=== PATIENT | female | born 1945 | race Caucasian/White ===

== ENCOUNTER 2018-12-18 05:30 | Inpatient (IN) | payer MEDICAID ==
[~2018-12-18] VITALS: Ht 154.9 cm; Wt 88.5 kg
[2018-12-18 05:37] VITALS: BP_SYST 151
[2018-12-18] MEDS ORDERED: METO25TA3 PO (05:43)
[2018-12-18] MEDS ORDERED: LOSA100T3 PO (05:43)
[2018-12-18] MEDS ORDERED: ERGO500020 PO (05:44)
[2018-12-18] MEDS ORDERED: IPRATROPIUM/ALBUTEROL SULFATE 3 ML AMPUL.NEB (DUONEB) INH ONE (05:45)
[2018-12-18] MEDS ORDERED: ASPIRIN 81 MG TAB.CHEW PO ONE (05:45)
[2018-12-18] MEDS ORDERED: LEVO75TA7 PO (05:45)
[2018-12-18] MEDS ORDERED: NS 500 ML IV ONE (05:45)
[2018-12-18] MEDS ORDERED: LANS-57 PO (05:45)
[2018-12-18] MEDS ORDERED: WARF2TAB2 PO (05:47)
[2018-12-18] MEDS ORDERED: FOLI-43 PO (05:48)
[2018-12-18] MEDS ORDERED: AMLO5TAB4 PO (05:48)
[2018-12-18] MEDS ORDERED: IBUP-1969 PO (05:49)
[2018-12-18] MEDS ORDERED: LANT10005 PO (05:51)
[2018-12-18 06:00] LABS: HEMATOCRIT 34.4 % (36-48); HEMOGLOBIN 11.2 g/dL (12.0-16.0); MEAN CORPUSCULAR HEMOGLOBIN 30 pg (27-31); MEAN CORPUSCULAR HGB CONC 33 % (32-36); MEAN CORPUSCULAR VOLUME 91 fL (79.0-98.0); PLATELET COUNT (AUTO) 189 K/uL (130-430); RED BLOOD CELL COUNT(AUTO) 3.78 MIL/uL (4.2-6.2); RED CELL DISTRIBUTION WIDTH 15.9 % (9.0-15.0); WHITE BLOOD COUNT (AUTO) 5.6 K/uL (4.8-10.8)
[2018-12-18 06:01] LABS: BASOPHILS # (AUTO) 0.1 K/uL (0.0-0.2); BASOPHILS % (AUTO) 0.9 % (0.0-2.0); EOSINOPHILS # (AUTO) 0.7 K/uL (0.0-0.4); EOSINOPHILS % (AUTO) 11.6 % (0.0-4.0); LYMPHOCYTES # (AUTO) 0.7 K/uL (1.0-5.5); LYMPHOCYTES % (AUTO) 12.2 % (20.5-51.5); MONOCYTES # (AUTO) 0.7 K/uL (0.0-1.0); MONOCYTES % (AUTO) 12.7 % (1.7-9.3); NEUTROPHILS # (AUTO) 3.5 K/uL (1.8-7.7); NEUTROPHILS % (AUTO) 62.6 % (40.0-70.0)
[2018-12-18 06:11] LABS: ANION GAP 11 (5-15); CALCIUM 9.3 mg/dL (8.4-11.0); CHLORIDE 96 mmol/L (98-107); CREATININE 6.26 mg/dL (0.55-1.30); GLUCOSE 175 mg/dL (70-99); POTASSIUM 4.7 mmol/L (3.5-5.1); SODIUM SERUM 137 mmol/L (136-145); UREA NITROGEN, BLOOD 33 mg/dL (8-21)
[2018-12-18 06:13] LABS: INR 1.3 (0.8-1.2)
[2018-12-18 06:25] LABS: ALANINE AMINOTRANSFERASE 20 U/L (12-78); ALBUMIN 3.4 g/dL (3.4-4.8); ASPARTATE AMINOTRANSFERASE 23 U/L (10-37); THYROID STIMULATING HORMONE 2.05 uIu/mL (0.36-3.74); TOTAL BILIRUBIN 0.3 mg/dL (0.0-1.0)
[2018-12-18] MEDS ORDERED: PIPERACILLIN/TAZO 3.375 GM in NS 50 ML IV ONE (06:30)
[2018-12-18] MEDS ORDERED: IPRATROPIUM/ALBUTEROL SULFATE 3 ML AMPUL.NEB (DUONEB) INH PRN (06:45)
[2018-12-18] MEDS ORDERED: PIPERACILLIN/TAZOBACTAM 3.375 GM/VIAL (ZOSYN) IV ONE ×2 (06:48)
[2018-12-18 07:00] VITALS: BP_SYST 151
[2018-12-18 07:03] VITALS: BP_SYST 162
[2018-12-18] MEDS ORDERED: ZOLPIDEM TARTRATE 5 MG TABLET PO PRN (07:15)
[2018-12-18] MEDS ORDERED: MILK OF MAGNESIA 30 ML UDC PO PRN (07:15)
[2018-12-18] MEDS ORDERED: LORazepam 2 MG/ML VIAL IVP PRN (07:15)
[2018-12-18] MEDS ORDERED: ONDANSETRON HCL 4 MG/2 ML VIAL IVP PRN (07:15)
[2018-12-18] MEDS ORDERED: DOCUSATE SODIUM 100 MG CAPSULE PO PRN (07:15)
[2018-12-18] MEDS ORDERED: HYDROcodone/ACETAMIN 5-325 MG TAB (NORCO/ VICODIN) PO PRN (07:15)
[2018-12-18] MEDS ORDERED: LEVOTHYROXINE SODIUM 0.075 MG TABLET PO ONE (08:15)
[2018-12-18 08:28] LABS: CHOLESTEROL 203 mg/dL (<200); HDL CHOLESTEROL 57 mg/dL (>55); LDL CHOLESTEROL 122 mg/dL (<100); LIPASE 172 U/L (73-393); PHOSPHORUS 4.9 mg/dL (2.7-4.5); TRIGLYCERIDES 129 mg/dL (30-150)
[2018-12-18] MEDS: METOPROLOL TARTRATE 25 MG TABLET PO SCH ×2 (09:25→21:26)
[2018-12-18] MEDS: LOSARTAN POTASSIUM 50 MG TABLET (COZAAR) PO SCH (09:25)
[2018-12-18] MEDS: amLODIPine BESYLATE 5 MG TABLET PO SCH ×2 (09:25→21:26)
[2018-12-18] MEDS: FOLIC ACID 1 MG TABLET PO SCH (09:25)
[2018-12-18] MEDS: ACETAMINOPHEN 325 MG TABLET PO PRN ×2 (09:30→21:27)
[2018-12-18] MEDS ORDERED: DEXTROSE 50% JECT 50 ML DISP.SYRIN IVP PRN (10:00)
[2018-12-18] MEDS ORDERED: cloNIDine HCL 0.1 MG TABLET PO PRN (10:15)
[2018-12-18] MEDS ORDERED: methylPREDNISolone SOD SUCC/PF 62.5 MG/ML VIAL IVP ONE (11:15)
[2018-12-18] MEDS ORDERED: PIPERACILLIN/TAZO 2.25G/DEX-IS 50 ML IV ONE (11:30)
[2018-12-18] MEDS ORDERED: DILTIAZEM HCL 25 MG/5 ML VIAL IVP ONE (11:30)
[2018-12-18] MEDS: PROMETHAZINE 6.25 MG/ CODEINE 10 MG/ 5 ML PO PRN (11:51)
[2018-12-18] MEDS: INSULIN LISPRO SLIDING SCALE 100 UNITS/ML VIAL (humaLOG) SUBCUT PRN ×3 (11:55→21:23)
[2018-12-18] MEDS: IPRATROPIUM/ALBUTEROL SULFATE 3 ML AMPUL.NEB (DUONEB) INH SCH ×2 (12:00→19:25)
[2018-12-18 12:19] VITALS: BP_SYST 136
[2018-12-18] MEDS: NORMAL SALINE 5 ML DISP.SYRIN IVF SCH ×2 (13:59→21:28)
[2018-12-18 15:34] VITALS: BP_SYST 138
[2018-12-18] MEDS: WARFARIN SODIUM 3 MG TABLET PO SCH (17:19)
[2018-12-18] MEDS: BUDESONIDE 0.5 MG/2 ML AMPUL.NEB INH SCH (20:00)
[2018-12-18] MEDS: PIPERACILLIN/TAZO 2.25G/DEX-IS 50 ML IV SCH (21:25)
[2018-12-18] MEDS: methylPREDNISolone SOD SUCC/PF 62.5 MG/ML VIAL IVP SCH (21:27)
[2018-12-18] MEDS: INSULIN NPH/REGULAR 70-30, 100 UNITS/ML, 10 ML VIAL SUBCUT SCH (21:41)
[2018-12-19] MEDS: IPRATROPIUM/ALBUTEROL SULFATE 3 ML AMPUL.NEB (DUONEB) INH SCH ×5 (00:30→23:41)
[2018-12-19 01:16] VITALS: BP_SYST 149
[2018-12-19] MEDS: LEVOTHYROXINE SODIUM 0.075 MG TABLET PO SCH (05:54)
[2018-12-19] MEDS: methylPREDNISolone SOD SUCC/PF 62.5 MG/ML VIAL IVP SCH ×2 (05:54→14:17)
[2018-12-19] MEDS: NORMAL SALINE 5 ML DISP.SYRIN IVF SCH ×3 (05:54→21:21)
[2018-12-19] MEDS: INSULIN NPH/REGULAR 70-30, 100 UNITS/ML, 10 ML VIAL SUBCUT SCH ×2 (06:08→17:12)
[2018-12-19] MEDS: INSULIN LISPRO SLIDING SCALE 100 UNITS/ML VIAL (humaLOG) SUBCUT PRN ×4 (06:09→21:27)
[2018-12-19 07:15] LABS: INR 1.5 (0.8-1.2); PROTHROMBIN TIME 15.6 SECS (9.5-12.5)
[2018-12-19 07:21] LABS: ANION GAP 16 (5-15); CALCIUM 9.3 mg/dL (8.4-11.0); CHLORIDE 93 mmol/L (98-107); SODIUM SERUM 131 mmol/L (136-145); UREA NITROGEN, BLOOD 59 mg/dL (8-21)
[2018-12-19 07:41] LABS: GLUCOSE 404 mg/dL (70-99)
[2018-12-19 07:42] LABS: ALANINE AMINOTRANSFERASE 28 U/L (12-78); ALBUMIN 3.2 g/dL (3.4-4.8); ASPARTATE AMINOTRANSFERASE 33 U/L (10-37); CREATININE 8.69 mg/dL (0.55-1.30); THYROID STIMULATING HORMONE 0.58 uIu/mL (0.36-3.74); TOTAL BILIRUBIN 0.3 mg/dL (0.0-1.0)
[2018-12-19] MEDS: BUDESONIDE 0.5 MG/2 ML AMPUL.NEB INH SCH ×2 (08:00→20:04)
[2018-12-19 08:21] LABS: HEMATOCRIT 33.2 % (36-48); HEMOGLOBIN 10.8 g/dL (12.0-16.0); MEAN CORPUSCULAR HEMOGLOBIN 30 pg (27-31); MEAN CORPUSCULAR VOLUME 93 fL (79.0-98.0); RED BLOOD CELL COUNT(AUTO) 3.58 MIL/uL (4.2-6.2)
[2018-12-19 08:22] VITALS: BP_SYST 146
[2018-12-19 08:22] LABS: BASOPHILS % (AUTO) 0.3 % (0.0-2.0); LYMPHOCYTES # (AUTO) 0.4 K/uL (1.0-5.5); LYMPHOCYTES % (AUTO) 5.9 % (20.5-51.5); MEAN CORPUSCULAR HGB CONC 33 % (32-36); MONOCYTES # (AUTO) 0.1 K/uL (0.0-1.0); MONOCYTES % (AUTO) 1.7 % (1.7-9.3); NEUTROPHILS # (AUTO) 5.5 K/uL (1.8-7.7); NEUTROPHILS % (AUTO) 92.1 % (40.0-70.0); PLATELET COUNT (AUTO) 152 K/uL (130-430); RED CELL DISTRIBUTION WIDTH 16.3 % (9.0-15.0)
[2018-12-19] MEDS: PIPERACILLIN/TAZO 2.25G/DEX-IS 50 ML IV SCH (09:01)
[2018-12-19] MEDS: METOPROLOL TARTRATE 25 MG TABLET PO SCH ×2 (09:02→21:20)
[2018-12-19] MEDS: amLODIPine BESYLATE 5 MG TABLET PO SCH ×2 (09:02→21:21)
[2018-12-19] MEDS: FOLIC ACID 1 MG TABLET PO SCH (09:02)
[2018-12-19] MEDS: ASPIRIN 81 MG TAB.CHEW PO SCH (09:02)
[2018-12-19] MEDS: LOSARTAN POTASSIUM 50 MG TABLET (COZAAR) PO SCH (09:03)
[2018-12-19 12:09] VITALS: BP_SYST 151
[2018-12-19] MEDS ORDERED: SODIUM POLYSTYRENE SULFONATE 15 GM/60 ML UDBTL PO ONE (12:30)
[2018-12-19 16:35] VITALS: BP_SYST 139
[2018-12-19] MEDS ORDERED: INSULIN NPH/REGULAR 70-30, 100 UNITS/ML, 10 ML VIAL SUBCUT SCH (17:00)
[2018-12-19] MEDS: WARFARIN SODIUM 3 MG TABLET PO SCH (17:38)
[2018-12-19 20:00] VITALS: BP_SYST 128
[2018-12-19] MEDS: ACETAMINOPHEN 325 MG TABLET PO PRN (21:19)
[2018-12-19] MEDS: methylPREDNISolone SOD SUCC 40 MG/ML VIAL IVP SCH (21:19)
[2018-12-20 00:10] VITALS: BP_SYST 150
[2018-12-20] MEDS: methylPREDNISolone SOD SUCC 40 MG/ML VIAL IVP SCH ×2 (05:56→15:06)
[2018-12-20] MEDS: NORMAL SALINE 5 ML DISP.SYRIN IVF SCH ×3 (05:56→21:34)
[2018-12-20] MEDS: LEVOTHYROXINE SODIUM 0.075 MG TABLET PO SCH (05:56)
[2018-12-20] MEDS: INSULIN NPH/REGULAR 70-30, 100 UNITS/ML, 10 ML VIAL SUBCUT SCH ×2 (06:08→17:16)
[2018-12-20] MEDS: INSULIN LISPRO SLIDING SCALE 100 UNITS/ML VIAL (humaLOG) SUBCUT PRN ×4 (06:09→21:34)
[2018-12-20] MEDS: IPRATROPIUM/ALBUTEROL SULFATE 3 ML AMPUL.NEB (DUONEB) INH SCH ×3 (07:01→19:14)
[2018-12-20 07:44] VITALS: BP_SYST 157
[2018-12-20 08:17] LABS: INR 2.1 (0.8-1.2); PROTHROMBIN TIME 20.4 SECS (9.5-12.5)
[2018-12-20 08:30] LABS: ALANINE AMINOTRANSFERASE 35 U/L (12-78); ALBUMIN 3.1 g/dL (3.4-4.8); ANION GAP 13 (5-15); ASPARTATE AMINOTRANSFERASE 30 U/L (10-37); CALCIUM 8.6 mg/dL (8.4-11.0); CHLORIDE 92 mmol/L (98-107); CREATININE 6.68 mg/dL (0.55-1.30); GLUCOSE 371 mg/dL (70-99); PHOSPHORUS 6.8 mg/dL (2.7-4.5); POTASSIUM 3.7 mmol/L (3.5-5.1); SODIUM SERUM 132 mmol/L (136-145); TOTAL BILIRUBIN 0.4 mg/dL (0.0-1.0); UREA NITROGEN, BLOOD 56 mg/dL (8-21)
[2018-12-20] MEDS: LOSARTAN POTASSIUM 50 MG TABLET (COZAAR) PO SCH (09:02)
[2018-12-20] MEDS: amLODIPine BESYLATE 5 MG TABLET PO SCH ×2 (09:03→21:26)
[2018-12-20] MEDS: METOPROLOL TARTRATE 25 MG TABLET PO SCH ×2 (09:03→21:25)
[2018-12-20] MEDS: FOLIC ACID 1 MG TABLET PO SCH (09:03)
[2018-12-20] MEDS: ASPIRIN 81 MG TAB.CHEW PO SCH ×2 (09:03→09:06)
[2018-12-20] MEDS: BUDESONIDE 0.5 MG/2 ML AMPUL.NEB INH SCH ×2 (09:19→19:33)
[2018-12-20] MEDS: AZITHROMYCIN 250 MG in NS 250 ML IV SCH (11:10)
[2018-12-20 11:22] VITALS: BP_SYST 127
[2018-12-20] MEDS: PROMETHAZINE 6.25 MG/ CODEINE 10 MG/ 5 ML PO PRN (11:34)
[2018-12-20 11:40] LABS: HEMATOCRIT 32.2 % (36-48); HEMOGLOBIN 10.4 g/dL (12.0-16.0); MEAN CORPUSCULAR HEMOGLOBIN 30 pg (27-31); MEAN CORPUSCULAR HGB CONC 32 % (32-36); MEAN CORPUSCULAR VOLUME 92 fL (79.0-98.0); PLATELET COUNT (AUTO) 166 K/uL (130-430); RED CELL DISTRIBUTION WIDTH 15.8 % (9.0-15.0)
[2018-12-20 11:41] LABS: BASOPHILS % (AUTO) 0.1 % (0.0-2.0); LYMPHOCYTES # (AUTO) 0.4 K/uL (1.0-5.5); LYMPHOCYTES % (AUTO) 3.2 % (20.5-51.5); MONOCYTES # (AUTO) 0.2 K/uL (0.0-1.0); MONOCYTES % (AUTO) 1.9 % (1.7-9.3); NEUTROPHILS # (AUTO) 10.4 K/uL (1.8-7.7)
[2018-12-20 13:52] LABS: NEUTROPHILS % (AUTO) 94.8 % (40.0-70.0)
[2018-12-20 15:07] VITALS: BP_SYST 121
[2018-12-20 15:56] LABS: HEMOGLOBIN A1C 7.6 % (4.8-5.6)
[2018-12-20] MEDS ORDERED: WARFARIN SODIUM 2 MG TABLET PO SCH (18:00)
[2018-12-20 20:00] VITALS: BP_SYST 140
[2018-12-21 00:34] VITALS: BP_SYST 109
[2018-12-21] MEDS: IPRATROPIUM/ALBUTEROL SULFATE 3 ML AMPUL.NEB (DUONEB) INH SCH ×3 (01:00→14:09)
[2018-12-21] MEDS: PROMETHAZINE 6.25 MG/ CODEINE 10 MG/ 5 ML PO PRN ×2 (04:25→08:52)
[2018-12-21] MEDS: NORMAL SALINE 5 ML DISP.SYRIN IVF SCH ×2 (06:16→13:53)
[2018-12-21] MEDS: LEVOTHYROXINE SODIUM 0.075 MG TABLET PO SCH (06:17)
[2018-12-21] MEDS: INSULIN NPH/REGULAR 70-30, 100 UNITS/ML, 10 ML VIAL SUBCUT SCH (06:23)
[2018-12-21] MEDS: INSULIN LISPRO SLIDING SCALE 100 UNITS/ML VIAL (humaLOG) SUBCUT PRN (06:24)
[2018-12-21 07:55] LABS: INR 2.3 (0.8-1.2)
[2018-12-21 08:00] VITALS: BP_SYST 141
[2018-12-21 08:03] LABS: PROTHROMBIN TIME 23.1 SECS (9.5-12.5)
[2018-12-21] MEDS: LOSARTAN POTASSIUM 50 MG TABLET (COZAAR) PO SCH (08:45)
[2018-12-21] MEDS: amLODIPine BESYLATE 5 MG TABLET PO SCH (08:46)
[2018-12-21] MEDS: FOLIC ACID 1 MG TABLET PO SCH (08:46)
[2018-12-21] MEDS: METOPROLOL TARTRATE 25 MG TABLET PO SCH (08:46)
[2018-12-21] MEDS: AZITHROMYCIN 250 MG in NS 250 ML IV SCH (08:47)
[2018-12-21] MEDS: BUDESONIDE 0.5 MG/2 ML AMPUL.NEB INH SCH (09:32)
[2018-12-21] MEDS ORDERED: AZIT250T PO (10:56)
[2018-12-21] MEDS ORDERED: PRED10TA PO (10:57)
[2018-12-21 11:06] VITALS: BP_SYST 124
[2018-12-21 12:13] VITALS: BP_SYST 124
[2018-12-21 16:02] VITALS: BP_SYST 127
== END 2018-12-21 17:34 | disposition home or self-care (01) | DRG 194 ==
LOC: SED 05:30 → STU 06:30
PROVIDERS: ADMIT Family Medicine; ATTEND Family Medicine
PROC: 5A1D70Z Performance of Urinary Filtration, Intermittent, Less than 6 Hours Per Day (ICD-10-PCS; principal; 2018-12-19)
PROC: 5A1D70Z Performance of Urinary Filtration, Intermittent, Less than 6 Hours Per Day (ICD-10-PCS; 2018-12-20)
DX: I13.2 Hypertensive heart and chronic kidney disease with heart failure and with stage 5 chronic kidney disease, or end stage renal disease (principal); N17.0 Acute kidney failure with tubular necrosis; R65.11 Systemic inflammatory response syndrome (SIRS) of non-infectious origin with acute organ dysfunction; J44.1 Chronic obstructive pulmonary disease with (acute) exacerbation; E11.22 Type 2 diabetes mellitus with diabetic chronic kidney disease; I48.91 Unspecified atrial fibrillation; N18.6 End stage renal disease; E11.40 Type 2 diabetes mellitus with diabetic neuropathy, unspecified; J44.0 Chronic obstructive pulmonary disease with (acute) lower respiratory infection; E87.5 Hyperkalemia; I50.43 Acute on chronic combined systolic (congestive) and diastolic (congestive) heart failure; J20.9 Acute bronchitis, unspecified; Z99.2 Dependence on renal dialysis; E03.9 Hypothyroidism, unspecified; E83.39 Other disorders of phosphorus metabolism; D63.1 Anemia in chronic kidney disease; E83.41 Hypermagnesemia; E66.9 Obesity, unspecified; E78.5 Hyperlipidemia, unspecified; F43.20 Adjustment disorder, unspecified; J45.909 Unspecified asthma, uncomplicated; Z90.49 Acquired absence of other specified parts of digestive tract; Z88.8 Allergy status to other drugs, medicaments and biological substances; Z79.899 Other long term (current) drug therapy; Z68.36 Body mass index [BMI] 36.0-36.9, adult
CPT/HCPCS: 36415; 36600; 71045; 80053; 80061; 82803-TC; 82962; 83036; 83605; 83690-TC; 83735-TC; 83880; 84100-TC; 84134; 84443-TC; 84484; 85025; 85610-TC; 85730-TC; 87040-TC; 87081; 90935; 90937; 93005; 93306; 94640; 94760; 96361; 96365; 99285; G0378; J0456; J1030; J1815; J2543; J2930; J3490; J7030; J7050; J7620; J7626

== ENCOUNTER 2018-12-25 17:26 | Inpatient (IN) | payer MEDICAID ==
[~2018-12-25] VITALS: Ht 157.5 cm; Wt 92.5 kg
[~2018-12-25 17:26] MED LIST: AMLO5TAB4 PO; AZIT250T PO; ERGO500020 PO; FOLI-43 PO; IBUP-1969 PO; LANS-57 PO; LANT10005 PO; LEVO75TA7 PO; LOSA100T3 PO; METO25TA3 PO; PRED10TA PO; WARF2TAB2 PO
[2018-12-25 17:32] VITALS: BP_SYST 143
[2018-12-25] MEDS: NACL 0.9% 1,000 ML IV ONE ×2 (17:34→18:03)
[2018-12-25] MEDS ORDERED: ALBUTEROL SULFATE 0.083% 2.5 MG/3 ML VIAL.NEB IH ONE (17:45)
[2018-12-25] MEDS ORDERED: IPRATROPIUM BROM 0.5 MG/2.5 ML VIAL.NEB (ATROVENT) IH ONE (17:45)
[2018-12-25] MEDS ORDERED: methylPREDNISolone SOD SUCC/PF 62.5 MG/ML VIAL IVP ONE (17:45)
[2018-12-25] MEDS ORDERED: NS 500 ML IV ONE (17:45)
[2018-12-25] MEDS ORDERED: INSU100V3 SQ ×2 (18:27)
[2018-12-25 18:28] LABS: HEMATOCRIT 34.7 % (36-48); HEMOGLOBIN 11.3 g/dL (12.0-16.0); MEAN CORPUSCULAR HEMOGLOBIN 30 pg (27-31); MEAN CORPUSCULAR VOLUME 91 fL (79.0-98.0)
[2018-12-25 18:29] LABS: BASOPHILS # (AUTO) 0.1 K/uL (0.0-0.2); BASOPHILS % (AUTO) 0.4 % (0.0-2.0); EOSINOPHILS # (AUTO) 0.3 K/uL (0.0-0.4); EOSINOPHILS % (AUTO) 2.1 % (0.0-4.0); LYMPHOCYTES # (AUTO) 0.9 K/uL (1.0-5.5); LYMPHOCYTES % (AUTO) 7.1 % (20.5-51.5); MEAN CORPUSCULAR HGB CONC 33 % (32-36); MONOCYTES # (AUTO) 0.7 K/uL (0.0-1.0); MONOCYTES % (AUTO) 5.7 % (1.7-9.3); NEUTROPHILS % (AUTO) 84.7 % (40.0-70.0); PLATELET COUNT (AUTO) 246 K/uL (130-430); RED CELL DISTRIBUTION WIDTH 15.8 % (9.0-15.0)
[2018-12-25 18:34] LABS: ANION GAP 10 (5-15); CALCIUM 8.2 mg/dL (8.4-11.0); CHLORIDE 93 mmol/L (98-107); CREATININE 6.65 mg/dL (0.55-1.30); GLUCOSE 208 mg/dL (70-99); POTASSIUM 3.8 mmol/L (3.5-5.1); SODIUM SERUM 130 mmol/L (136-145); UREA NITROGEN, BLOOD 51 mg/dL (8-21)
[2018-12-25 18:38] LABS: ALANINE AMINOTRANSFERASE 21 U/L (12-78); ALBUMIN 3.1 g/dL (3.4-4.8); ASPARTATE AMINOTRANSFERASE 6 U/L (10-37); INR 2.2 (0.8-1.2); LIPASE 158 U/L (73-393); PROTHROMBIN TIME 21.8 SECS (9.5-12.5); TOTAL BILIRUBIN 0.4 mg/dL (0.0-1.0)
[2018-12-25 21:30] VITALS: BP_SYST 120
[2018-12-25] MEDS ORDERED: traMADol HCL HCL 50 MG TABLET (ULTRAM) PO PRN (22:00)
[2018-12-25] MEDS ORDERED: AZITHROMYCIN 250 MG TABLET PO ONE (22:00)
[2018-12-25] MEDS ORDERED: DEXTROSE 50% JECT 50 ML DISP.SYRIN IVP PRN (22:00)
[2018-12-25] MEDS ORDERED: LOPERAMIDE HCL 2 MG CAPSULE PO PRN (22:00)
[2018-12-25] MEDS ORDERED: cefTRIAXone 1 GM in D5W 50 ML IV SCH (22:00)
[2018-12-25] MEDS ORDERED: methylPREDNISolone SOD SUCC 40 MG/ML VIAL IVP ONE (22:00)
[2018-12-25] MEDS ORDERED: LEVOFLOXACIN 250 MG/D5W 50 ML IV SCH (22:15)
[2018-12-25] MEDS ORDERED: IPRATROPIUM/ALBUTEROL SULFATE 3 ML AMPUL.NEB (DUONEB) INH PRN (22:15)
[2018-12-25] MEDS: metroNIDAZOLE 500 MG TABLET PO SCH (22:16)
[2018-12-25] MEDS: LACTOBACILLUS RHAMNOSUS GG 1 CAP CAPSULE PO SCH (22:16)
[2018-12-25 22:36] VITALS: BP_SYST 120
[2018-12-25] MEDS: IPRATROPIUM/ALBUTEROL SULFATE 3 ML AMPUL.NEB (DUONEB) INH SCH (23:26)
[2018-12-25] MEDS ORDERED: LEVOFLOXACIN 500 MG/D5W 100 ML IV ONE (23:30)
[2018-12-26] MEDS ORDERED: LEVOFLOXACIN 500 MG/D5W 100 ML IV ONE (00:11)
[2018-12-26 00:30] VITALS: BP_SYST 112
[2018-12-26] MEDS: IPRATROPIUM/ALBUTEROL SULFATE 3 ML AMPUL.NEB (DUONEB) INH SCH ×4 (04:09→19:55)
[2018-12-26] MEDS: metroNIDAZOLE 500 MG TABLET PO SCH ×3 (06:26→21:41)
[2018-12-26] MEDS: INSULIN REGULAR, HUMAN 100 UNITS/ML, 10 ML VIAL (novoLIN R) SUBCUT PRN ×4 (06:47→20:24)
[2018-12-26 06:55] LABS: ANION GAP 18 (5-15); CALCIUM 7.7 mg/dL (8.4-11.0); CHLORIDE 93 mmol/L (98-107); POTASSIUM 5.3 mmol/L (3.5-5.1); SODIUM SERUM 133 mmol/L (136-145); UREA NITROGEN, BLOOD 61 mg/dL (8-21)
[2018-12-26 07:10] LABS: PHOSPHORUS 6.9 mg/dL (2.7-4.5); THYROID STIMULATING HORMONE 0.32 uIu/mL (0.36-3.74)
[2018-12-26 07:30] LABS: CREATININE 7.66 mg/dL (0.55-1.30); GLUCOSE 487 mg/dL (70-99)
[2018-12-26 07:59] LABS: INR 2.6 (0.8-1.2); PROTHROMBIN TIME 25.8 SECS (9.5-12.5)
[2018-12-26 08:14] LABS: BASOPHILS % (AUTO) 0.1 % (0.0-2.0); EOSINOPHILS % (AUTO) 0.1 % (0.0-4.0); HEMATOCRIT 31.7 % (36-48); HEMOGLOBIN 10.1 g/dL (12.0-16.0); LYMPHOCYTES # (AUTO) 0.4 K/uL (1.0-5.5); LYMPHOCYTES % (AUTO) 2.9 % (20.5-51.5); MEAN CORPUSCULAR HEMOGLOBIN 30 pg (27-31); MEAN CORPUSCULAR HGB CONC 32 % (32-36); MEAN CORPUSCULAR VOLUME 94 fL (79.0-98.0); MONOCYTES # (AUTO) 0.1 K/uL (0.0-1.0); MONOCYTES % (AUTO) 0.8 % (1.7-9.3); NEUTROPHILS % (AUTO) 96.1 % (40.0-70.0); PLATELET COUNT (AUTO) 184 K/uL (130-430); RED BLOOD CELL COUNT(AUTO) 3.38 MIL/uL (4.2-6.2); RED CELL DISTRIBUTION WIDTH 15.4 % (9.0-15.0); WHITE BLOOD COUNT (AUTO) 13.6 K/uL (4.8-10.8)
[2018-12-26] MEDS: METOPROLOL SUCCINATE 25 MG TAB.SR.24H (TOPROL XL) PO SCH ×2 (09:00→20:15)
[2018-12-26] MEDS ORDERED: LANTHANUM CARBONATE 1000 MG PO SCH (09:00)
[2018-12-26] MEDS: amLODIPine BESYLATE 5 MG TABLET PO SCH ×2 (09:00→20:16)
[2018-12-26] MEDS ORDERED: methylPREDNISolone SOD SUCC 40 MG/ML VIAL IVP SCH (09:00)
[2018-12-26] MEDS: LOSARTAN POTASSIUM 50 MG TABLET (COZAAR) PO SCH (09:00)
[2018-12-26] MEDS ORDERED: AZITHROMYCIN 250 MG TABLET PO SCH (09:00)
[2018-12-26] MEDS: LACTOBACILLUS RHAMNOSUS GG 1 CAP CAPSULE PO SCH ×2 (09:48→20:14)
[2018-12-26] MEDS: PANTOPRAZOLE SODIUM 40 MG TAB PO SCH (09:48)
[2018-12-26] MEDS: FOLIC ACID 1 MG TABLET PO SCH (09:48)
[2018-12-26] MEDS: LEVOTHYROXINE SODIUM 0.075 MG TABLET PO SCH (09:48)
[2018-12-26 09:51] VITALS: BP_SYST 122
[2018-12-26] MEDS: BUDESONIDE 0.5 MG/2 ML AMPUL.NEB INH SCH ×2 (11:15→19:40)
[2018-12-26] MEDS: ACETAMINOPHEN 325 MG TABLET PO PRN (11:15)
[2018-12-26] MEDS ORDERED: INSULIN NPH 100 UNITS/ML 10 ML VIAL SUBCUT ONE (12:15)
[2018-12-26] MEDS: PREDNISONE 10 MG TABLET PO SCH ×2 (12:37→17:09)
[2018-12-26 12:42] VITALS: BP_SYST 142
[2018-12-26 16:14] VITALS: BP_SYST 120
[2018-12-26] MEDS ORDERED: INSULIN Lispro Prot/Lispro MIX 75-25, 100 UNITS/ML, 10 ML VIAL SUBCUT SCH (17:00)
[2018-12-26] MEDS: SEVELAMER HCL 800 MG TABLET PO SCH (17:08)
[2018-12-26] MEDS ORDERED: WARFARIN SODIUM 2 MG TABLET PO SCH (18:00)
[2018-12-26 19:47] VITALS: BP_SYST 119
[2018-12-26] MEDS: PROMETHAZINE-DM 6.25 MG-15 MG/5 ML UDC PO PRN (20:18)
[2018-12-26] MEDS ORDERED: SEVELAMER HCL 800 MG TABLET PO SCH (21:00)
[2018-12-27] MEDS: IPRATROPIUM/ALBUTEROL SULFATE 3 ML AMPUL.NEB (DUONEB) INH SCH ×4 (00:40→19:47)
[2018-12-27 01:13] VITALS: BP_SYST 119
[2018-12-27] MEDS: metroNIDAZOLE 500 MG TABLET PO SCH ×3 (06:25→21:45)
[2018-12-27] MEDS: PANTOPRAZOLE SODIUM 40 MG TAB PO SCH (06:25)
[2018-12-27 06:39] LABS: ANION GAP 11 (5-15); CALCIUM 8.8 mg/dL (8.4-11.0); CHLORIDE 96 mmol/L (98-107); CREATININE 5.83 mg/dL (0.55-1.30); GLUCOSE 295 mg/dL (70-99); POTASSIUM 4.4 mmol/L (3.5-5.1); SODIUM SERUM 136 mmol/L (136-145); UREA NITROGEN, BLOOD 45 mg/dL (8-21)
[2018-12-27] MEDS: INSULIN REGULAR, HUMAN 100 UNITS/ML, 10 ML VIAL (novoLIN R) SUBCUT PRN ×4 (06:45→21:52)
[2018-12-27 06:48] LABS: BASOPHILS % (AUTO) 0.1 % (0.0-2.0); EOSINOPHILS % (AUTO) 0.1 % (0.0-4.0); HEMATOCRIT 31.4 % (36-48); HEMOGLOBIN 10.1 g/dL (12.0-16.0); LYMPHOCYTES # (AUTO) 0.5 K/uL (1.0-5.5); LYMPHOCYTES % (AUTO) 3.8 % (20.5-51.5); MEAN CORPUSCULAR HEMOGLOBIN 29 pg (27-31); MEAN CORPUSCULAR HGB CONC 32 % (32-36); MEAN CORPUSCULAR VOLUME 91 fL (79.0-98.0); MONOCYTES # (AUTO) 0.8 K/uL (0.0-1.0); MONOCYTES % (AUTO) 5.4 % (1.7-9.3); NEUTROPHILS % (AUTO) 90.6 % (40.0-70.0); PLATELET COUNT (AUTO) 185 K/uL (130-430); RED BLOOD CELL COUNT(AUTO) 3.44 MIL/uL (4.2-6.2); RED CELL DISTRIBUTION WIDTH 15.6 % (9.0-15.0); WHITE BLOOD COUNT (AUTO) 14.3 K/uL (4.8-10.8)
[2018-12-27 07:00] LABS: INR 2.3 (0.8-1.2); PROTHROMBIN TIME 22.7 SECS (9.5-12.5)
[2018-12-27] MEDS ORDERED: INSULIN Lispro Prot/Lispro MIX 75-25, 100 UNITS/ML, 10 ML VIAL SUBCUT SCH (07:00)
[2018-12-27] MEDS: BUDESONIDE 0.5 MG/2 ML AMPUL.NEB INH SCH ×2 (07:25→19:47)
[2018-12-27] MEDS: ACETAMINOPHEN 325 MG TABLET PO PRN (08:11)
[2018-12-27] MEDS: FOLIC ACID 1 MG TABLET PO SCH (08:11)
[2018-12-27] MEDS: PREDNISONE 10 MG TABLET PO SCH ×3 (08:11→17:27)
[2018-12-27] MEDS: LACTOBACILLUS RHAMNOSUS GG 1 CAP CAPSULE PO SCH ×2 (08:12→21:45)
[2018-12-27] MEDS: LOSARTAN POTASSIUM 50 MG TABLET (COZAAR) PO SCH (08:12)
[2018-12-27] MEDS: SEVELAMER HCL 800 MG TABLET PO SCH ×2 (08:13→17:27)
[2018-12-27] MEDS: LEVOTHYROXINE SODIUM 0.075 MG TABLET PO SCH (08:14)
[2018-12-27] MEDS: amLODIPine BESYLATE 5 MG TABLET PO SCH ×2 (08:14→21:46)
[2018-12-27] MEDS: METOPROLOL SUCCINATE 25 MG TAB.SR.24H (TOPROL XL) PO SCH ×2 (08:14→21:46)
[2018-12-27 08:21] VITALS: BP_SYST 149
[2018-12-27 12:15] VITALS: BP_SYST 108
[2018-12-27] MEDS: cefTRIAXone 1 GM in D5W 50 ML IV SCH (15:18)
[2018-12-27 16:11] VITALS: BP_SYST 121
[2018-12-27] MEDS: WARFARIN SODIUM 2 MG TABLET PO SCH (17:26)
[2018-12-27] MEDS: INSULIN Lispro Prot/Lispro MIX 75-25, 100 UNITS/ML, 10 ML VIAL SUBCUT SCH (17:30)
[2018-12-27 19:49] VITALS: BP_SYST 137
[2018-12-27] MEDS ORDERED: LEVOFLOXACIN 250 MG/D5W 50 ML IV SCH ×2 (20:00)
[2018-12-27] MEDS: DOXYCYCLINE HYCLATE 100 MG in D5W 100 ML IV SCH (21:47)
[2018-12-27] MEDS: PROMETHAZINE-DM 6.25 MG-15 MG/5 ML UDC PO PRN (21:58)
[2018-12-28 00:14] VITALS: BP_SYST 115
[2018-12-28] MEDS: IPRATROPIUM/ALBUTEROL SULFATE 3 ML AMPUL.NEB (DUONEB) INH SCH ×3 (00:59→13:43)
[2018-12-28 06:38] LABS: INR 1.7 (0.8-1.2); PROTHROMBIN TIME 17.3 SECS (9.5-12.5)
[2018-12-28] MEDS: PANTOPRAZOLE SODIUM 40 MG TAB PO SCH (06:47)
[2018-12-28] MEDS: metroNIDAZOLE 500 MG TABLET PO SCH ×2 (06:47→13:15)
[2018-12-28] MEDS: INSULIN REGULAR, HUMAN 100 UNITS/ML, 10 ML VIAL (novoLIN R) SUBCUT PRN ×2 (06:52→17:38)
[2018-12-28 06:53] LABS: ANION GAP 13 (5-15); CALCIUM 8.4 mg/dL (8.4-11.0); CHLORIDE 95 mmol/L (98-107); GLUCOSE 228 mg/dL (70-99); POTASSIUM 4.4 mmol/L (3.5-5.1); SODIUM SERUM 134 mmol/L (136-145); UREA NITROGEN, BLOOD 77 mg/dL (8-21)
[2018-12-28] MEDS: BUDESONIDE 0.5 MG/2 ML AMPUL.NEB INH SCH (07:00)
[2018-12-28] MEDS ORDERED: INSULIN Lispro Prot/Lispro MIX 75-25, 100 UNITS/ML, 10 ML VIAL SUBCUT SCH (07:00)
[2018-12-28] MEDS: SEVELAMER HCL 800 MG TABLET PO SCH ×2 (08:25→17:35)
[2018-12-28] MEDS: LEVOTHYROXINE SODIUM 0.075 MG TABLET PO SCH (08:25)
[2018-12-28] MEDS: LACTOBACILLUS RHAMNOSUS GG 1 CAP CAPSULE PO SCH (08:25)
[2018-12-28] MEDS: PREDNISONE 10 MG TABLET PO SCH ×3 (08:25→17:35)
[2018-12-28] MEDS: FOLIC ACID 1 MG TABLET PO SCH (08:25)
[2018-12-28 08:27] VITALS: BP_SYST 135
[2018-12-28] MEDS: METOPROLOL SUCCINATE 25 MG TAB.SR.24H (TOPROL XL) PO SCH (11:42)
[2018-12-28] MEDS: LOSARTAN POTASSIUM 50 MG TABLET (COZAAR) PO SCH (11:42)
[2018-12-28] MEDS: amLODIPine BESYLATE 5 MG TABLET PO SCH (11:42)
[2018-12-28] MEDS: DOXYCYCLINE HYCLATE 100 MG in D5W 100 ML IV SCH (11:45)
[2018-12-28 12:14] VITALS: BP_SYST 108
[2018-12-28 12:26] VITALS: BP_SYST 129
[2018-12-28] MEDS: cefTRIAXone 1 GM in D5W 50 ML IV SCH (13:15)
[2018-12-28 16:00] VITALS: BP_SYST 129
[2018-12-28] MEDS: PROMETHAZINE-DM 6.25 MG-15 MG/5 ML UDC PO PRN (16:44)
[2018-12-28] MEDS: INSULIN Lispro Prot/Lispro MIX 75-25, 100 UNITS/ML, 10 ML VIAL SUBCUT SCH (17:37)
[2018-12-28] MEDS: WARFARIN SODIUM 2 MG TABLET PO SCH (17:39)
== END 2018-12-28 19:35 | disposition home health service (06) | DRG 139 ==
LOC: SED 17:26 → STU 20:26 → SMU 12-27 15:52
PROVIDERS: ADMIT Internal Medicine; ATTEND Internal Medicine
PROC: 5A1D70Z Performance of Urinary Filtration, Intermittent, Less than 6 Hours Per Day (ICD-10-PCS; principal; 2018-12-26)
PROC: 5A1D70Z Performance of Urinary Filtration, Intermittent, Less than 6 Hours Per Day (ICD-10-PCS; 2018-12-28)
DX: J18.9 Pneumonia, unspecified organism (principal); I21.A1 Myocardial infarction type 2; G93.41 Metabolic encephalopathy; I13.2 Hypertensive heart and chronic kidney disease with heart failure and with stage 5 chronic kidney disease, or end stage renal disease; J44.0 Chronic obstructive pulmonary disease with (acute) lower respiratory infection; E11.22 Type 2 diabetes mellitus with diabetic chronic kidney disease; I27.20 Pulmonary hypertension, unspecified; I08.1 Rheumatic disorders of both mitral and tricuspid valves; J45.901 Unspecified asthma with (acute) exacerbation; I48.2 Chronic atrial fibrillation; I50.9 Heart failure, unspecified; N18.6 End stage renal disease; J44.1 Chronic obstructive pulmonary disease with (acute) exacerbation; K52.9 Noninfective gastroenteritis and colitis, unspecified; E03.9 Hypothyroidism, unspecified; E66.9 Obesity, unspecified; Z79.4 Long term (current) use of insulin; Z90.49 Acquired absence of other specified parts of digestive tract; Z68.37 Body mass index [BMI] 37.0-37.9, adult; Z79.01 Long term (current) use of anticoagulants; Z88.8 Allergy status to other drugs, medicaments and biological substances; Z79.899 Other long term (current) drug therapy; Z79.52 Long term (current) use of systemic steroids; Z99.2 Dependence on renal dialysis
CPT/HCPCS: 36415; 36600; 71045; 71250-TC; 80048; 80053; 82550-TC; 82803-TC; 82962; 83605; 83690-TC; 83880; 84100-TC; 84439; 84443-TC; 84484; 85025; 85379; 85610-TC; 85730-TC; 86713; 87040-TC; 87081; 90935; 90937; 93005; 94640; 94664; 94760; 96361; 96374; 97116-GP; 99285; G0378; J0696; J1030; J1815; J1956; J2930; J3490; J7030; J7060; J7512; J7613; J7620; J7626

== ENCOUNTER 2019-03-22 18:49 | Emergency (ER) | payer MEDICAID ==
[~2019-03-22] VITALS: Ht 157.5 cm; Wt 65.8 kg
[~2019-03-22 18:49] MED LIST changes: -AZIT250T PO; +INSU100V3 SQ
[2019-03-22 18:59] VITALS: BP_SYST 118
[2019-03-22 19:36] LABS: ANION GAP 15 (5-15); CALCIUM 9.5 mg/dL (8.4-11.0); CHLORIDE 96 mmol/L (98-107); GLUCOSE 220 mg/dL (70-99); POTASSIUM 4.3 mmol/L (3.5-5.1); SODIUM SERUM 138 mmol/L (136-145); UREA NITROGEN, BLOOD 39 mg/dL (8-21)
[2019-03-22 19:38] LABS: BASOPHILS # (AUTO) 0.1 K/uL (0.0-0.2); BASOPHILS % (AUTO) 0.8 % (0.0-2.0); EOSINOPHILS # (AUTO) 0.1 K/uL (0.0-0.4); EOSINOPHILS % (AUTO) 0.5 % (0.0-4.0); HEMATOCRIT 26.5 % (36-48); HEMOGLOBIN 8.4 g/dL (12.0-16.0); LYMPHOCYTES # (AUTO) 0.8 K/uL (1.0-5.5); MEAN CORPUSCULAR HEMOGLOBIN 30 pg (27-31); MEAN CORPUSCULAR HGB CONC 32 % (32-36); MEAN CORPUSCULAR VOLUME 96 fL (79.0-98.0); MONOCYTES # (AUTO) 0.9 K/uL (0.0-1.0); MONOCYTES % (AUTO) 7.1 % (1.7-9.3); NEUTROPHILS # (AUTO) 10.9 K/uL (1.8-7.7); NEUTROPHILS % (AUTO) 85.6 % (40.0-70.0); PLATELET COUNT (AUTO) 396 K/uL (130-430); RED BLOOD CELL COUNT(AUTO) 2.76 MIL/uL (4.2-6.2); RED CELL DISTRIBUTION WIDTH 16.3 % (9.0-15.0); WHITE BLOOD COUNT (AUTO) 12.7 K/uL (4.8-10.8)
[2019-03-22 19:42] LABS: ALANINE AMINOTRANSFERASE 22 U/L (12-78); ALBUMIN 2.2 g/dL (3.4-4.8); ASPARTATE AMINOTRANSFERASE 22 U/L (10-37); TOTAL BILIRUBIN 0.4 mg/dL (0.0-1.0)
[2019-03-22 19:57] LABS: INR 1.2 (0.8-1.2); PROTHROMBIN TIME 12.3 SECS (9.5-12.5)
[2019-03-22] MEDS ORDERED: NS 500 ML IV ONE (20:15)
[2019-03-22] MEDS ORDERED: MORPHINE 2 MG/ML INJ. SYRINGE IVP ONE (20:15)
[2019-03-22] MEDS ORDERED: PIPERACILLIN/TAZO 3.375 GM in NS 50 ML IV ONE (20:30)
[2019-03-22] MEDS ORDERED: VANCOMYCIN HCL 1,000 MG in NS 250 ML IV ONE (20:30)
[2019-03-22] MEDS ORDERED: PIPERACILLIN/TAZOBACTAM 3.375 GM/VIAL (ZOSYN) IV ONE (20:53)
[2019-03-22] MEDS ORDERED: VANCOMYCIN HCL 500 MG/VIAL IV ONE (21:14)
[2019-03-22] MEDS ORDERED: NACL 0.9% 1,000 ML IV ONE (21:30)
[2019-03-22] MEDS ORDERED: SUCCINYLCHOLINE CHLORIDE 20 MG/ML(QUELICIN) IVP ONE (21:30)
[2019-03-22] MEDS ORDERED: KETAMINE 30 MG/3 ML SYRINGE 30 MG in NS 100 ML IV ONE (21:30)
[2019-03-22] MEDS ORDERED: ETOMIDATE 20 MG/ 10 ML VIAL (AMIDATE) IVP ONE (21:30)
[2019-03-22] MEDS ORDERED: KETAMINE 30 MG/3 ML SYRINGE ONE (21:45)
[2019-03-22] MEDS ORDERED: EPINEPHrine JECT 1 MG/10 ML SYR ONE (21:47)
[2019-03-22] MEDS ORDERED: ALTEPLASE 100 MG VIAL IV ONE (22:15)
[2019-03-22] MEDS ORDERED: ALTEPLASE 100 MG IV ONE (22:23)
[2019-03-22] MEDS ORDERED: TENECTEPLASE 50 MG VIAL IV ONE (22:26)
== END 2019-03-22 22:40 | disposition expired ==
LOC: SED 18:49
DX: I46.9 Cardiac arrest, cause unspecified (principal); I21.3 ST elevation (STEMI) myocardial infarction of unspecified site; E11.65 Type 2 diabetes mellitus with hyperglycemia; D64.9 Anemia, unspecified; L08.89 Other specified local infections of the skin and subcutaneous tissue; I10 Essential (primary) hypertension; Z99.2 Dependence on renal dialysis; Z88.8 Allergy status to other drugs, medicaments and biological substances; Z79.899 Other long term (current) drug therapy
CPT/HCPCS: 31500; 36415; 37195; 71045; 73600; 80053; 83605; 84484; 85025; 85610; 85730; 87040; 92950; 93005; 96361; 96365; 99291; 99292; J0171; J2543; J2997; J3370; J7030; J7040; J2270; J3101